=== PATIENT | female | born 1960 | race Caucasian/White ===

== ENCOUNTER 2024-01-25 12:28 | Emergency (ER) | payer OTHER, SELFPAY ==
[2024-01-25 12:36] VITALS: BP 148/77; PULSE 78; RESP 20; TEMP 36.7; O2SAT 95
--- NOTE | 2024-01-25 13:10 | ED.EAR ---
HPI - Ear Problem General Chief complaint: Ear Stated complaint: ear pain Source: patient Mode of arrival: ambulatory Limitations: no limitations History of Present Illness HPI Narrative: 63-year-old female with history of diabetes and hypertension presented for complaint of left ear pain for 4 days. Pain is worse when bending over. Endorses mild nasal congestion recently. She reports the ear feels clogged and decreased hearing. She denies tinnitus, dizziness, headache, nausea vomiting, fevers chills. MD Complaint: ear pain Related Data Home Medications Medication Instructions Recorded Confirmed albuterol sulfate 90 mcg/actuation inhalation 01/25/24 aerosol inhaler albuterol sulfate 90 mcg/actuation inhalation 01/25/24 aerosol inhaler aspirin 81 mg tablet,delayed mg 01/25/24 release atorvastatin 80 mg tablet mg 01/25/24 chlorthalidone 25 mg tablet mg 01/25/24 diclofenac sodium 75 mg mg PO 01/25/24 tablet,delayed release empagliflozin 25 mg tablet mg 01/25/24 (Jardiance) fluticasone fur. 200 mcg-umeclid inhalation 01/25/24 62.5 mcg-vilant 25 mcg inhalat.powder (Trelegy Ellipta) gabapentin 300 mg capsule mg 01/25/24 ipratropium 0.5 mg-albuterol 3 mg ml inhalation 01/25/24 (2.5 mg base)/3 mL nebulization soln losartan 25 mg tablet mg 01/25/24 meloxicam 7.5 mg tablet mg 01/25/24 pyridostigmine bromide 60 mg tablet mg 01/25/24 venlafaxine 75 mg capsule,extended mg PO 01/25/24 release 24 hr Allergies Allergy/AdvReac Type Severity Reaction Status Date / Time Penicillins Allergy Unknown Verified 01/25/24 12:45 Sulfa (Sulfonamide Allergy Unknown Verified 01/25/24 12:45 Antibiotics) Review of Systems Review of Systems: CONSTITUTIONAL: Denies malaise, chills, or fever. EYES: Denies visual changes, redness, or discharge. ENT: Denies rhinorrhea, congestion, sinus pain, and sore throat. Reports ear pain CARDIOVASCULAR: Denies chest pain, palpitations, or edema. RESPIRATORY: Denies cough or dyspnea. GASTROINTESTINAL: Denies abdominal pain, nausea, vomiting, diarrhea SKIN: Denies rash or itching. MUSCULOSKELETAL: Denies myalgia. NEUROLOGIC: Denies headache. All systems reviewed & are unremarkable except as noted in HPI and below PMFSH Comments At time of signature, agree with nursing past medical, surgical, social and family history. There is no relevant family history pertinent to the presenting complaint Exam Narrative: GENERAL: Well-appearing EYES: PERRLA, conjunctivae clear ENT: Nares clear. Mucous membranes moist. right TM pearly ellsworth with dull light reflex; Left TM erythematous and intact; purulent effusion. canal not erythematous, no drainage no tragal tenderness. Oropharynx not erythematous without lesions. Tonsils not enlarged and without exudate, no drooling, no hoarseness, no trismus, uvula midline. CHEST: Clear to auscultation, breath sounds equal. SKIN: Warm, dry, no rash. NEURO: Alert and oriented x3. PSYCH: Normal mood and affect Course Course Emergency Course: Patient is aware of diagnosis, understands and agrees to treatment plan. Anticipatory guidance given. Patient agrees to follow-up as directed and is aware of reasons to seek care at the emergency department. Portions of this record may have been created with voice recognition software Level of Care: Express Care Visit Vital Signs Vital signs: Vital Signs Temperature 98.1 F 01/25/24 12:36 Pulse Rate 78 01/25/24 12:36 Respiratory Rate 20 01/25/24 12:36 Blood Pressure 148/77 H 01/25/24 12:36 Pulse Oximetry 95 01/25/24 12:36 Oxygen Delivery Room Air 01/25/24 12:36 Temperature 98.1 F 01/25/24 12:36 Pulse Rate 78 01/25/24 12:36 Respiratory Rate 20 01/25/24 12:36 Blood Pressure 148/77 H 01/25/24 12:36 Pulse Oximetry 95 01/25/24 12:36 Oxygen Delivery Room Air 01/25/24 12:36 Reviewed Medical Decision Making MDM Narrative Medical decision making narrative: discussed physical exam findings consistent with left otitis media.Advised supportive measures and signs/symptoms to go to the ER. Patient is appropriate for outpatient treatment and follow-up. Differential Diagnosis Differential Diagnosis: Coronavirus, strep pharyngitis, allergic rhinitis, upper respiratory tract infection, sinusitis, rhinosinusitis, nasopharyngitis, viral pharyngitis, otitis media, otitis externa, eustachian tube dysfunction, foreign body, cerumen impaction. Vital Signs Vital Signs: Vital Signs Temperature 98.1 F 01/25/24 12:36 Pulse Rate 78 01/25/24 12:36 Respiratory Rate 20 01/25/24 12:36 Blood Pressure 148/77 H 01/25/24 12:36 Pulse Oximetry 95 01/25/24 12:36 Oxygen Delivery Room Air 01/25/24 12:36 Temperature 98.1 F 01/25/24 12:36 Pulse Rate 78 01/25/24 12:36 Respiratory Rate 20 01/25/24 12:36 Blood Pressure 148/77 H 01/25/24 12:36 Pulse Oximetry 95 01/25/24 12:36 Oxygen Delivery Room Air 01/25/24 12:36 Discharge Plan Discharge Clinical Impression: Otitis media Patient Disposition: Home, Self-Care Condition: Stable Instructions: Antibiotic Form, Ear Infection (ED) Additional Instructions: Take antibiotics as directed. Recommend antihistamine such as Benadryl, Zyrtec or Alesia for sinus congestion Flonase nasal spray, 1 spray in each nostril once daily until symptoms improve Symptomatic treatment includes: rest, fluids, and increase humidity of the air at home. Tylenol 1000mg every 8 hours as needed to reduce fever, pain Please schedule a follow-up visit with your personal physician for further evaluation and treatment within 3-5days. If your symptoms persist, change or worsen significantly, go to the emergency department for further evaluation. Prescriptions: New cefdinir 300 mg capsule 300 mg PO Q12H Qty: 14 0RF No Action atorvastatin 80 mg tablet venlafaxine 75 mg capsule,extended release 24hr PO ipratropium-albuterol 0.5 mg-3 mg(2.5 mg base)/3 mL solution for nebulization INHALATION chlorthalidone 25 mg tablet aspirin 81 mg tablet,delayed release (DR/EC) meloxicam 7.5 mg tablet pyridostigmine bromide 60 mg tablet losartan 25 mg tablet gabapentin 300 mg capsule diclofenac sodium 75 mg tablet,delayed release (DR/EC) PO albuterol sulfate 90 mcg/actuation HFA aerosol inhaler INHALATION albuterol sulfate 90 mcg/actuation HFA aerosol inhaler INHALATION Jardiance 25 mg tablet Trelegy Ellipta 200-62.5-25 mcg blister with device INHALATION Follow-up/Referrals: PHYSICIAN NOT ON STAFF,NONSTAFF [Primary Care Provider] -
== END 2024-01-25 13:22 | disposition home or self-care (01) ==
PROVIDERS: Emergency Provider Nurse Practitioner Family
DX: H66.92 Otitis media, unspecified, left ear (principal); I10 Essential (primary) hypertension; J44.9 Chronic obstructive pulmonary disease, unspecified; E11.9 Type 2 diabetes mellitus without complications; E05.90 Thyrotoxicosis, unspecified without thyrotoxic crisis or storm
CPT/HCPCS: 99203; G0463